=== PATIENT | male | born 1945 | race Caucasian/White ===

== ENCOUNTER 2018-05-01 03:21 | Observation (INO) | payer OTHER ==
[2018-05-01] MEDS ORDERED: KETOROLAC 30 MG/1 ML SDV IVP ONE (03:25)
[2018-05-01] MEDS ORDERED: NS 1,000 ML IV ONE ×2 (03:25→04:30)
[2018-05-01] MEDS ORDERED: ONDANSETRON 4 MG/2 ML VIAL IVP ONE ×2 (03:25→11:45)
[2018-05-01 03:38] LABS: PLATELET COUNT 195 10^3/uL (150-400)
[2018-05-01] MEDS ORDERED: LIDOCAINE 1% 100 MG in NS 100 ML IV ONE (03:41)
--- NOTE | 2018-05-01 04:00 | EDPHY ---
H & P Stated Complaint: right flank pain for past 2 days off and on Time Seen by Provider: 05/01/18 03:24 HPI/ROS: HPI The patient presents with intermittent right-sided flank pain for the last 2 days. Symptoms began yesterday and started slowly and have gotten better though then worse this morning at 1:15 a.m.. The pain begins in his right flank and radiates forward to his abdomen, it is severe and aching. It feels like the kidney stones he had 9 years ago. He was seen by Dr. Knott of Urology yesterday and had a UA performed which did show mild hematuria. He had a CT scan performed in the afternoon at an outpatient center, results are pending though he has the imaging study with him. He denies any bisi hematuria currently. He has vomited once. He has not taken any medication for pain REVIEW OF SYSTEMS Constitutional: No fever, no chills. Eyes: No discharge. ENT: No sore throat. Cardiovascular: No chest pain, no palpitations. Respiratory: No cough, no shortness of breath. Gastrointestinal: See HPI Genitourinary: No hematuria. Musculoskeletal: No back pain. Skin: No rashes. Neurological: No headache. PMHx: History of nephrolithiasis, hernia repair Soc Hx: Lives at home with his PHYSICAL General Appearance: Alert, uncomfortable appearing Eyes: Pupils equal and round no pallor or injection ENT, Mouth: Mucous membranes moist Respiratory: There are no retractions, lungs are clear to auscultation Cardiovascular: Regular rate and rhythm Gastrointestinal: Abdomen is soft and non-tender, no masses, bowel sounds normal Neurological: A&O, moves all extremities Skin: Warm and dry, no rashes Musculoskeletal: Neck is supple non tender Extremities: symmetrical, full range of motion Psychiatric: Patient is oriented X 3, there is no agitation Source: Patient Exam Limitations: No limitations - Personal History Current Tetanus/Diphtheria Vaccine: Yes Current Tetanus Diphtheria and Acellular Pertussis (TDAP): Yes - Medical/Surgical History Hx Asthma: No Hx Chronic Respiratory Disease: No Hx Diabetes: No Hx Cardiac Disease: No Hx Renal Disease: No Hx Cirrhosis: No Hx Alcoholism: No Hx HIV/AIDS: No Hx Splenectomy or Spleen Trauma: No Other PMH: kidney stones, hernia repair - Social History Smoking Status: Never smoked Constitutional: Initial Vital Signs Temperature (C) 36.3 C 05/01/18 03:26 Heart Rate 85 05/01/18 03:26 Respiratory Rate 18 05/01/18 03:26 Blood Pressure 154/85 H 05/01/18 03:26 O2 Sat (%) 100 05/01/18 03:26 O2 Delivery Mode Room Air O2 (L/minute) 2 Allergies/Adverse Reactions: penicillin G Allergy (Verified 05/01/18 03:43) Home Medications: Medication Instructions Recorded Aspirin [Adult Aspirin] 81 mg PO 05/01/18 Atorvastatin Calcium 10 mg PO 05/01/18 Temazepam [Restoril 15 MG (*)] 15 mg PO HSPRN PRN 05/01/18 amLODIPine BESYLATE [Amlodipine 10 mg PO 05/01/18 Besylate] Medical Decision Making - Diagnostics Imaging Results: CT scan without contrast demonstrates right-sided 5 mm kidney stone in the renal pelvis, possible mild hydro, discussed with the radiologist origination specialist Dr. Rodriguez. This is not a formal read. Differential Diagnosis: 73-year-old man with intermittent right flank pain for the last 2 days now associated with vomiting. Pain woke him from sleep at 1:15 a.m. This morning. He is undergoing an evaluation for this pain and has had a UA performed showing hematuria and small amount of white blood cells. He had a CT scan done yesterday, however it has not been read yet. His presentation is suspicious for ureterolithiasis given his history. I would also consider ruptured AAA. As he could be suffering from pyelonephritis. In the emergency department, IV line was established and the patient was given normal saline. Labs were checked including CBC and chemistries and were unremarkable. As he was given Toradol initially for his pain. On reassessment , his pain continued and he was given morphine and lidocaine. He felt better after receiving these medications. Urine eventually resulted showing hematuria without any sign of infection. Dr. Rodriguez was kind enough to look at the patient's outpatient CT scan of his abdomen pelvis which did show a 5 mm stone in the renal pelvis. The patient was observed for several hours though did have ongoing discomfort. I consulted with his primary outpatient urologist Dr. Knott who will see him today in consultation and likely remove the stone. We will keep him NPO until then. I have consulted with the hospitalist Dr. Peguero who will admit the patient. The patient is happy with this plan. - Data Points Laboratory Results: Laboratory Results 05/01/18 03:30 05/01/18 03:30 05/01/18 05/01/18 05/01/18 04:50 03:30 03:30 WBC 6.54 10^3/uL 10^3/uL (3.80-9.50) RBC 4.77 10^6/uL 10^6/uL (4.40-6.38) Hgb 15.0 g/dL g/dL (13.7-17.5) Hct 43.4 % % (40.0-51.0) MCV 91.0 fL fL (81.5-99.8) MCH 31.4 pg pg (27.9-34.1) MCHC 34.6 g/dL g/dL (32.4-36.7) RDW 13.5 % % (11.5-15.2) Plt Count 195 10^3/uL 10^3/uL (150-400) MPV 10.9 fL fL (8.7-11.7) Neut % (Auto) 59.9 % % (39.3-74.2) Lymph % (Auto) 30.4 % % (15.0-45.0) [place] % (Auto) 8.4 % % (4.5-13.0) Eos % (Auto) 0.5 % L % (0.6-7.6) Baso % (Auto) 0.6 % % (0.3-1.7) Nucleat RBC Rel Count 0.0 % % (0.0-0.2) Absolute Neuts (auto) 3.92 10^3/uL 10^3/uL (1.70-6.50) Absolute Lymphs (auto) 1.99 10^3/uL 10^3/uL (1.00-3.00) Absolute Monos (auto) 0.55 10^3/uL 10^3/uL (0.30-0.80) Absolute Eos (auto) 0.03 10^3/uL 10^3/uL (0.03-0.40) Absolute Basos (auto) 0.04 10^3/uL 10^3/uL (0.02-0.10) Absolute Nucleated RBC 0.00 10^3/uL 10^3/uL (0-0.01) Immature Gran % 0.2 % % (0.0-1.1) Immature Gran # 0.01 10^3/uL 10^3/uL (0.00-0.10) Sodium 142 mEq/L mEq/L (135-145) Potassium 4.2 mEq/L mEq/L (3.3-5.0) Chloride 106 mEq/L mEq/L (97-110) Carbon Dioxide 23 mEq/l mEq/l (22-31) Anion Gap 13 mEq/L mEq/L (8-16) BUN 16 mg/dL mg/dL (7-23) Creatinine 0.8 mg/dL mg/dL (0.7-1.3) Estimated GFR > 60 Glucose 131 mg/dL H mg/dL (70-100) Calcium 9.6 mg/dL mg/dL (8.5-10.4) Urine Color PALE YELLOW Urine Appearance CLEAR Urine pH 7.0 (5.0-7.5) Ur Specific [place] 1.010 (1.002-1.030) Urine Protein NEGATIVE (NEGATIVE) Urine Ketones 1+ H (NEGATIVE) Urine Blood 3+ H (NEGATIVE) Urine Nitrate NEGATIVE (NEGATIVE) Urine Bilirubin NEGATIVE (NEGATIVE) Urine Urobilinogen NEGATIVE EU EU (0.2-1.0) Ur Leukocyte Esterase NEGATIVE (NEGATIVE) Urine RBC 50-182 /hpf H /hpf (0-3) Urine WBC 1-3 /hpf /hpf (0-3) Ur Epithelial Cells TRACE /lpf /lpf (NONE-1+) Hyaline Casts 1-5 /lpf /lpf (0-1) Urine Mucus TRACE /lpf /lpf (NONE-1+) Urine Glucose NEGATIVE (NEGATIVE) Medications Given: Discontinued Medications Sodium Chloride (Ns) 1,000 mls @ 0 mls/hr IV ONCE ONE; Wide Open PRN Reason: Protocol Stop: 05/01/18 03:26 Last Admin: 05/01/18 03:36 Dose: 1,000 mls Lidocaine HCl 100 mg/ Sodium (Chloride) 110 mls @ 600 mls/hr IV EDNOW ONE Stop: 05/01/18 03:51 Last Admin: 05/01/18 04:26 Dose: 110 mls Sodium Chloride (Ns) 1,000 mls @ 0 mls/hr IV ONCE ONE PRN Reason: Wide Open Stop: 05/01/18 04:31 Last Admin: 05/01/18 04:30 Dose: 1,000 mls Ketorolac Tromethamine (Toradol) 15 mg IVP EDNOW ONE Stop: 05/01/18 03:26 Last Admin: 05/01/18 03:36 Dose: 15 mg Morphine Sulfate (Morphine) 4 mg IVP EDNOW ONE Stop: 05/01/18 03:52 Last Admin: 05/01/18 03:54 Dose: 4 mg Ondansetron HCl (Zofran) 4 mg IVP EDNOW ONE Stop: 05/01/18 03:26 Last Admin: 05/01/18 03:35 Dose: 4 mg Departure - Departure Disposition: [facility] Inpatient Acute Clinical Impression: Ureterolithiasis, Right flank pain Condition: Fair Referrals: Donnell Henning MD [Primary Care Provider] - As per Instructions
[2018-05-01] MEDS ORDERED: NS 1,000 ML IV SCH ×2 (06:30→07:00)
[2018-05-01] MEDS ORDERED: ACETAMINOPHEN 325 MG TAB PO PRN (06:51)
[2018-05-01] MEDS ORDERED: LORazepam 2 MG/ML INJ IVP PRN (06:51)
[2018-05-01] MEDS ORDERED: ONDANSETRON 4 MG/2 ML VIAL IVP PRN (06:51)
--- NOTE | 2018-05-01 07:11 | PDGENHP ---
History and Physical - Chief Complaint Right flank pain - History of Present Illness Source-patient provides history appears reliable EMR was reviewed and case discussed with ED provider. HPI-this is a very pleasant 73-year-old gentleman with past medical history significant for HTN, HLD, insomnia, nephrolithiasis who presents emergency department this morning with complaints of severe right flank pain. Patient reports symptoms have been ongoing for the past 2 days. He was evaluated outpatient by Dr. Knott and found to have microscopic hematuria. He underwent outpatient CT abdomen pelvis initial reports were pending. Patient brought in the disc with him and preliminary review shows a 5 mm right renal pelvic stone. Patient denies any fevers chills. He has had nausea and vomiting without any hematemesis however. Patient's abdominal pain was waxing and waning in the early this morning patient be reports pain became increasingly severe and started to radiate from his back around to his right lower quadrant abdomen. She was not able to get comfortable and so presented to the emergency department for further relief. Patient has had a history of on lithotripsy and stent placement approximately 9 years ago. History Information - Allergies/Home Medication List Allergies/Adverse Reactions: penicillin G Allergy (Verified 05/01/18 03:43) Home Medications: Aspirin [Adult Aspirin] 81 mg PO 05/01/18 [Last Taken Unknown] Atorvastatin Calcium 10 mg PO 05/01/18 [Last Taken Unknown] Temazepam [Restoril 15 MG (*)] 15 mg PO HSPRN PRN 05/01/18 [Last Taken Unknown] amLODIPine BESYLATE [Amlodipine Besylate] 10 mg PO 05/01/18 [Last Taken Unknown] I have personally reviewed and updated: family history, medical history, social history, surgical history - Past Medical History Additional medical history: HTN, HLD, insomnia, nephrolithiasis. - Surgical History Additional surgical history: Left inguinal hernia repair. Lithotripsy and stent placement. EGD - Family History Additional family history: Daughter with history of kidney stones. - Social History Smoking Status: Never smoked Alcohol Use: Other (Patient drinks a gin and tonic on a daily basis in the evening.) Drug Use: None Additional social history: Patient is lives with his . Cor status- full. Review of Systems Review of Systems: ROS: 10pt was reviewed & negative except for what was stated in HPI & below Constitutional: Reports: no symptoms. Denies: chills, fever Cardiac: Reports: no symptoms Respiratory: Reports: no symptoms Gastrointestinal: Reports: vomitting, abdominal pain, nausea Genitourinary: Denies: dysuria, hematuria Muscolosketal: Reports: back pain. Denies: muscle pain Skin: Reports: no symptoms Neurological: Reports: no symptoms Physical Exam Physical Exam: Selected Entries 05/01/18 03:26 Blood Pressure Automatic Method Heart Rate 85 Respiratory 18 Rate O2 Sat (%) 100 Temperature (C) 36.3 C Blood Pressure 154/85 H Mean Arterial 108 H Pressure (MAP) O2 Delivery Room Air Mode Temperature Oral Source Temp Pulse Resp BP Pulse Ox 36.3 C 80 16 116/68 99 05/01/18 03:26 05/01/18 06:00 05/01/18 06:00 05/01/18 06:00 05/01/18 06:00 Constitutional: no apparent distress, not in pain, other (NAD. Patient lays quietly in bed. at bedside. Patient appears slightly fatigued but cooperative and pleasant.) Eyes: PERRL, anicteric sclera, EOMI (Grossly normal), No scleral injection Ears, Nose, Mouth, Throat: dry mucous membranes (Mucous membranes slightly tacky ), other (No nasal discharge), No no oral mucosal ulcers Cardiovascular: regular rate and rhythym, no murmur, rub, or gallop, pulses symmetric bilaterally, No edema Peripheral Pulses: 2+: dorsalis-pedis (R), dorsalis-pedis (L) Respiratory: no respiratory distress, no rales or rhonchi, clear to auscultation , No respiratory distress Gastrointestinal: normoactive bowel sounds, soft, non-tender abdomen, no palpable masses, No distension Genitourinary: no bladder tenderness, No ferguson in urethra Skin: warm, normal color, no rashes or abrasions, No rash Musculoskeletal: full muscle strength, other (Patient sits up independently. Moves all extremities. Strength grossly normal.) Neurologic: AAOx3, sensation intact bilaterally, other (Nonfocal exam.), No facial droop Psychiatric: interacting appropriately, not anxious, not encephalopathic, thought process linear Lab Data & Imaging Review 05/01/18 03:30 05/01/18 03:30 WBC 6.54 10^3/uL (3.80-9.50) 05/01/18 03:30 RBC 4.77 10^6/uL (4.40-6.38) 05/01/18 03:30 Hgb 15.0 g/dL (13.7-17.5) 05/01/18 03:30 Hct 43.4 % (40.0-51.0) 05/01/18 03:30 MCV 91.0 fL (81.5-99.8) 05/01/18 03:30 MCH 31.4 pg (27.9-34.1) 05/01/18 03:30 MCHC 34.6 g/dL (32.4-36.7) 05/01/18 03:30 RDW 13.5 % (11.5-15.2) 05/01/18 03:30 Plt Count 195 10^3/uL (150-400) 05/01/18 03:30 MPV 10.9 fL (8.7-11.7) 05/01/18 03:30 Neut % (Auto) 59.9 % (39.3-74.2) 05/01/18 03:30 Lymph % (Auto) 30.4 % (15.0-45.0) 05/01/18 03:30 [place] % (Auto) 8.4 % (4.5-13.0) 05/01/18 03:30 Eos % (Auto) 0.5 % (0.6-7.6) L 05/01/18 03:30 Baso % (Auto) 0.6 % (0.3-1.7) 05/01/18 03:30 Nucleat RBC Rel Count 0.0 % (0.0-0.2) 05/01/18 03:30 Absolute Neuts (auto) 3.92 10^3/uL (1.70-6.50) 05/01/18 03:30 Absolute Lymphs (auto) 1.99 10^3/uL (1.00-3.00) 05/01/18 03:30 Absolute Monos (auto) 0.55 10^3/uL (0.30-0.80) 05/01/18 03:30 Absolute Eos (auto) 0.03 10^3/uL (0.03-0.40) 05/01/18 03:30 Absolute Basos (auto) 0.04 10^3/uL (0.02-0.10) 05/01/18 03:30 Absolute Nucleated RBC 0.00 10^3/uL (0-0.01) 05/01/18 03:30 Immature Gran % 0.2 % (0.0-1.1) 05/01/18 03:30 Immature Gran # 0.01 10^3/uL (0.00-0.10) 05/01/18 03:30 Sodium 142 mEq/L (135-145) 05/01/18 03:30 Potassium 4.2 mEq/L (3.3-5.0) 05/01/18 03:30 Chloride 106 mEq/L (97-110) 05/01/18 03:30 Carbon Dioxide 23 mEq/l (22-31) 05/01/18 03:30 Anion Gap 13 mEq/L (8-16) 05/01/18 03:30 BUN 16 mg/dL (7-23) 05/01/18 03:30 Creatinine 0.8 mg/dL (0.7-1.3) 05/01/18 03:30 Estimated GFR > 60 05/01/18 03:30 Glucose 131 mg/dL (70-100) H 05/01/18 03:30 Calcium 9.6 mg/dL (8.5-10.4) 05/01/18 03:30 Urine Color PALE YELLOW 05/01/18 04:50 Urine Appearance CLEAR 05/01/18 04:50 Urine pH 7.0 (5.0-7.5) 05/01/18 04:50 Ur Specific [place] 1.010 (1.002-1.030) 05/01/18 04:50 Urine Protein NEGATIVE (NEGATIVE) 05/01/18 04:50 Urine Ketones 1+ (NEGATIVE) H 05/01/18 04:50 Urine Blood 3+ (NEGATIVE) H 05/01/18 04:50 Urine Nitrate NEGATIVE (NEGATIVE) 05/01/18 04:50 Urine Bilirubin NEGATIVE (NEGATIVE) 05/01/18 04:50 Urine Urobilinogen NEGATIVE EU (0.2-1.0) 05/01/18 04:50 Ur Leukocyte Esterase NEGATIVE (NEGATIVE) 05/01/18 04:50 Urine RBC 50-182 /hpf (0-3) H 05/01/18 04:50 Urine WBC 1-3 /hpf (0-3) 05/01/18 04:50 Ur Epithelial Cells TRACE /lpf (NONE-1+) 05/01/18 04:50 Hyaline Casts 1-5 /lpf (0-1) 05/01/18 04:50 Urine Mucus TRACE /lpf (NONE-1+) 05/01/18 04:50 Urine Glucose NEGATIVE (NEGATIVE) 05/01/18 04:50 Visualized and Interpreted imaging results: Yes Interpretation: CT abdomen pelvis image reviewed myself. Stone in the right renal pelvis. Some aortic calcifications. I do not have current access to the final CT report. Assessment & Plan Assessment: 73-year-old gentleman who presents with complaints of worsening 2 day history of right flank pain with radiation to the right lower quadrant. Ureterolithiasis (Acute) - Dr. Knott consulted from the emergency department and will plan to see the patient this morning. She has requested patient remain NPO for possible intervention. Hydronephrosis mild - plan as noted above. Right flank pain (Acute) - pain currently improved after morphine and Toradol. Will leave morphine available p.r.n.. Hyperglycemia - mildly elevated. No history of diabetes. Nonfasting level. Patient currently NPO. Will monitor clinically. And patient can follow up with PCP. Benign essential hypertension-patient with a few elevated blood pressures but this is likely related to patient's acute pain. Resume his amlodipine at discharge. HLD-resume statin at discharge. FEN - IV fluids while awaiting intervention. Patient does appear slightly dry he did report history of nausea vomiting. Electrolytes are adequate at this time no replacement needed. He will remain NPO. PPX-SCDs only. Holding anticoagulation tyrel procedure. Cor status-full Disposition-patient admitted observation status on the medical floor pending further evaluation and management of his acute foot pain.
[2018-05-01] MEDS ORDERED: OPIUM/BELLADONNA ALKALO SUPP PR ONE (10:28)
[2018-05-01] MEDS ORDERED: IOPAMIDOL (ISOVUE-M 300) 15 ML VIAL ONE ×2 (10:29→12:56)
[2018-05-01] MEDS ORDERED: LIDOCAINE 2% JELLY 20 ML (UROJECT) ONE (10:29)
[2018-05-01] MEDS ORDERED: LR 1,000 ML IV ONE (11:09)
--- NOTE | 2018-05-01 11:41 | PDANEPAE ---
ANE History of Present Illness Ureteroscopy ANE Past Medical History - Cardiovascular History Hx Hypertension: Yes - Pulmonary History Hx Oxygen in Use at Home: No Hx Sleep Apnea: No Sleep Apnea Screening Result - Last Documented: Negative - Endocrine History Hx Diabetes: No - Renal History Hx Renal Disorders: Yes - GI History GERD: mild ANE Review of Systems Review of systems is: negative Review of Systems: - Exercise capacity METS (RN): 4 METS ANE Patient History - Allergies Allergies/Adverse Reactions: penicillin G Allergy (Verified 05/01/18 03:43) - Home Medications Home medications: home medication list seen and reviewed Home Medications: Aspirin [Aspirin 81mg (*)] 81 mg PO DAILY 05/01/18 [Last Taken 04/30/18] Atorvastatin Calcium [Lipitor 10 mg (*)] 10 mg PO DAILY 05/01/18 [Last Taken ] Temazepam [Restoril 15 MG (*)] 15 mg PO HSPRN PRN 05/01/18 [Last Taken 04/30/18] amLODIPine BESYLATE [Norvasc 10 mg (*)] 10 mg PO DAILY 05/01/18 [Last Taken ] traMADol [Ultram 50 mg (*)] 25 mg PO Q6HRS PRN 05/01/18 [Last Taken Unknown] - NPO status NPO Status: no food or drink >8 hours NPO Since - Liquids (Date): 05/01/18 NPO Since - Liquids (Time): 00:00 NPO Since - Solids (Date): 05/01/18 NPO Since - Solids (Time): 00:00 - Anes Hx Anes Hx: no prior problems - Smoking Hx Smoking Status: Never smoked - Alcohol Use Alcohol Use: Other (Patient drinks a gin and tonic on a daily basis in the evening.) - Family Anes Hx Family Anes Hx: none ANE Labs/Vital Signs - Labs Result Diagrams: 05/01/18 03:30 05/01/18 03:30 - Vital Signs Blood Pressure: 129/68 Heart Rate: 93 Respiratory Rate: 16 O2 Sat (%): 97 Height: 177.8 cm Weight: 75.098 kg ANE Physical Exam - Airway Neck exam: FROM Mallampati Score: Class 1 - Pulmonary Pulmonary: no respiratory distress - Cardiovascular Cardiovascular: regular rate and rhythym - ASA Status ASA Status: II ANE Anesthesia Plan Anesthesia Plan: general endotracheal anesthesia
[2018-05-01] MEDS ORDERED: MIDAZOLAM 2 MG/2 ML VIAL IVP ONE (11:45)
[2018-05-01] MEDS ORDERED: fentaNYL 100 MCG/2 ML INJ IVP ONE (11:46)
[2018-05-01] MEDS ORDERED: CEFAZOLIN 2 GM/DEXTROSE/100 ML BAG IV ONE (12:02)
[2018-05-01] MEDS ORDERED: ONDANSETRON 4 MG/2 ML VIAL ONE (12:19)
[2018-05-01] MEDS ORDERED: DEXAMETHASONE 4 MG/ML VIAL ONE (12:19)
[2018-05-01] MEDS ORDERED: fentaNYL 100 MCG/2 ML INJ ONE (12:19)
[2018-05-01] MEDS ORDERED: LIDOCAINE 2% 100 MG/5 ML SYR ONE (12:19)
[2018-05-01] MEDS ORDERED: ROCURONIUM 50 MG/5 ML VIAL ONE (12:22)
[2018-05-01] MEDS ORDERED: PROPOFOL 200 MG/20 ML VIAL ONE (12:22)
[2018-05-01] MEDS ORDERED: levOFLOXACIN 500 MG/DEXTROSE/100 ML BAG IV ONE (12:24)
[2018-05-01] MEDS ORDERED: levOFLOXACIN 500 MG/DEXTROSE 100 ML IV ONE (13:59)
--- NOTE | 2018-05-01 13:59 | POSTOPPROG ---
Post Op Note Date of Operation: 05/01/18 Surgeon: Tere Knott Anesthesia: GET(General Endotracheal) Pre-op Diagnosis: right renal stone Post-op Diagnosis: same Indication: symptomatic right renal stone, hydronephrosis Procedure: cysto,removal bladder stones, dilation ureteral stenosis,stent, RGP, fluoro Findings: multiple areas of ureteral narrowing around iliacs, small stones in bladder Inf/Abcess present in the surg proc area at time of surgery?: No Depth: Organ Space (right collecting system) Complications: none Specimen(s): small bladder stones
[2018-05-01] MEDS ORDERED: oxyCODONE IR 5 MG TAB PO PRN (14:14)
[2018-05-01] MEDS ORDERED: SENNOSIDES/DOCUSATE SODIUM TAB PO PRN (14:15)
[2018-05-01] MEDS ORDERED: TAMSULOSIN HCL 0.4 MG CAP PO SCH (14:15)
[2018-05-01 14:33] VITALS: BP 139/73
--- NOTE | 2018-05-01 15:16 | PDDCSUM ---
Discharge Summary Discharge Summary: DISCHARGE SUMMARY FOLLOW-UP ITEMS: Repeat cystoscopy by Dr. Tere Knott Follow-up stone analysis DATE OF ADMISSION: 05/01/2018 DATE OF DISCHARGE: 05/01/2018 DISCHARGE DIAGNOSES: 1. Recurrent nephrolithiasis, right-sided 2. Acute abdominal pain CONSULTATIONS: Urology PROCEDURES / IMAGING: Cystoscopy by Dr. Knott, right-sided stent placement, stone debris sent for stone analysis CHIEF COMPLAINT: Acute abdominal pain SUBJECTIVE: Patient is feeling well at time discharge, he does not have any abdominal pain PHYSICAL EXAM ON DISCHARGE: Systolic blood pressure 110-130, heart rate 70-80, afebrile overnight, satting on room air, alert awake oriented x3, no tenderness in the abdomen, no CVA tenderness, no suprapubic tenderness, there is suprapubic fullness LABS ON DISCHARGE: Urinalysis with RBCs, creatinine 0.8, potassium 4.2, white blood cell count 6500 , hemoglobin 15 HOSPITAL COURSE BY PROBLEM: The patient presented with acute right-sided abdominal pain secondary to right- sided kidney stone in the renal pelvis, measuring approximately 5 mm. He received oral and IV pain medication, IV fluids, and underwent cystoscopy on . The cystoscopy was unable to fully advance the catheter into the proximal ureter, but did encounter numerous areas of stricture and ballooning was performed, with right-sided stent placed. She also removed stone debris which is present in the bladder, stone sent for analysis. The patient will require follow-up procedure with cystoscopy and ureteroscopy for further evaluation of the stone which remains present in the right kidney. The patient will utilize Flomax, pyridium, pain control and stool softener in the interim. DISCHARGE MEDICATIONS: Please see official discharge medication reconciliation sheet in chart , Flomax , pyridium, Percocet, Colace, continue other home medications. DISCHARGE INSTRUCTIONS: Please schedule follow-up urologic procedure with Dr. Knott.
--- NOTE | 2018-05-01 15:17 | GOP ---
[f rep st] OPERATIVE REPORT DATE OF OPERATION: 05/01/2018 SURGEON: Tere Knott MD ANESTHESIA: General. PREOPERATIVE DIAGNOSIS: Right ureteropelvic junction stone, symptomatic. POSTOPERATIVE DIAGNOSIS: Right ureteropelvic junction stone, symptomatic. PROCEDURE PERFORMED: Cystoscopy, extraction of small bladder stones, right retrograde pyelogram, right balloon dilation of ureteral stenosis, intraoperative fluoroscopy, stent 6-Cypriot multivariable. FINDINGS: Upon cystoscopy, there were small stones noted in the bladder, and these were extracted and sent to Pathology. The right ureter on retrograde showed multiple areas of stenoses that were really concentrated around the level of the iliacs on the right. I did see filling defect with a retrograde in the renal pelvis, which I believe was associated with a stone. I was unable to gain access with the sheath to the level of the right ureteropelvic junction and thus just needed to place a stent, and I was not able to gain access due to the multiple areas of stenoses despite even balloon dilation. ESTIMATED BLOOD LOSS: Minimal. INDICATIONS: The patient presented to my office yesterday with complaints of right flank pain, but he looked well and his urine was negative for infection. I sent him for a CT scan at [facility], and there was a ureteropelvic junction stone about 5 mm. Then he ended up having worsening pain over the middle of the night and presented to the ER [facility]. He was admitted and plan was for me to treat his stone today. When I saw him in preoperative area, we went over the rationale, risks, and benefits. Options would be trialed passage, which he refused due to his significant discomfort and nausea, and he desired treatment. I did explain that with his history of stones and treatment on the right side, he may have small ureteral stricture that may make obtaining access to this stone difficult. He understood that he may just end up getting a stent if that is the case. Otherwise, my plan was to completely remove his stone. Other risks included bleeding, infection, pain, burning with urination, need for a Smith catheter, injury to surrounding tissues , and injury to the urethra, bladder, or ureter, and need for subsequent procedures. He understood all these and agreed to proceed. DESCRIPTION OF PROCEDURE: The patient was taken back to the cystoscopy suite, placed on the cystoscopy table in a supine position. General anesthesia induced without complication. Time-out performed and core measures satisfied including placement of a Lara Hugger, SCDs, and administration of Levaquin antibiotics due to penicillin allergy. He was brought to the end of the table, placed in dorsal lithotomy position. All pressure points padded. Genitalia draped and prepped in the standard surgical fashion with Betadine. A rigid cystoscope easily cannulated the urethral meatus and was advanced atraumatically into the bladder. Palacio cystoscopy performed, and there were no lesions, cellules, or trabeculations, but there were small little stones that I extracted through the cystoscopy sheath. I sent these stones for Pathology. I initially did a right retrograde pyelogram to see if there were any filling defects in the ureter, and there were not, but there was narrowing in the ureter at the level of the iliac vessels. I was able to place two 0.035 glidewires, one a working wire and one a safety wire. I then attempted to pass a 12/14 ureteral access sheath with fluoroscopic guidance and was unable to pass the sheath past that level of the iliacs where I had seen the narrowing on the initial retrograde pyelogram. Then I disassembled my sheath and was able to successfully pass the inner 12-Cypriot access sheath and that did advance all the way up into the right renal pelvis. So then I tried again with the 14 and the 12 together and again unable to go past the same area at the level of the iliacs and the pelvic inlet. So at this point, I felt I would balloon dilate this area. I advanced a balloon dilator just across this area and did dilate to a pressure of 12 mmHg. I did this with fluoroscopic guidance over a wire. I did dilate it slightly more distal to this as I did note there was also some narrowing on the retrograde pyelogram. So at this point, I then removed my balloon dilator and then I re-attempted again to pass the 12/14-Cypriot access sheath, but again it did not pass. So at this point, I felt the best next step would be to leave a ureteral stent and let the ureter passively dilate these narrowed areas. I placed a 6-Cypriot multivariable stent with cystoscopic and fluoroscopic guidance. There was a nice curl in the pelvis and a nice curl in the bladder. His bladder was then emptied, and I considered the procedure complete. He was woken from anesthesia and transferred to PACU in good condition. Of note, I did place lidocaine jelly per urethra and a belladonna opium suppository per rectum. COMPLICATIONS: None. The patient tolerated the procedure well. /[id number]/MODL MTDD
[2018-05-01] MEDS ORDERED: PHENAZOPYRIDINE HCL 200 MG TAB PO SCH (19:00)
--- NOTE | 2018-05-04 19:20 | POSTANESTH ---
Post Anesthetic Evaluation Cardiovascular Status: Similar to Pre-Op Cond Respiratory Status: Similar to Pre-op Cond. Level of Consciousness/Mental Status: Can Participate in Eval Pain Control: Adequate, Prn Tx Ordered Nausea/Vomiting Control: Adequate, Prn Tx Ordered Complications Possibly Related to Anesthesia: None Noted
== END 2018-05-01 15:40 | disposition home or self-care (01) ==
LOC: F1N 07:53
PROVIDERS: ADMIT Family Medicine; ATTEND Family Medicine
PROC: 0TC68ZZ Extirpation of Matter from Right Ureter, Via Natural or Artificial Opening Endoscopic (ICD-10-PCS; principal; 2018-05-01 12:00)
DX: N20.0 Calculus of kidney (principal); R10.9 Unspecified abdominal pain; I10 Essential (primary) hypertension
CPT/HCPCS: 52320; 76001; 96361; 96374; 96375; 99285; C1726; C1758; C1769; C1894; C2625; G0378; J1100; J1885; J1956; J2001; J2250; J2270; J2405; J2704; J3010; Q9967; 82365-90; J0690